=== PATIENT | male | born 1985 ===

== ENCOUNTER 2022-04-01 12:46 | Outpatient (RCR) | payer OTHER, SELFPAY ==
--- NOTE | 2022-04-01 13:49 | PTOPEVAL ---
PHYSICAL THERAPY EVALUATION AND PLAN OF CARE 04-01-22 Thank you for referring Dev Palacios to [facility] He is scheduled to be seen for therapy? 0-2 x/week for 4 weeks. His symptoms have decreased and Eply maneuver was performed with good clearance of L anterior/posterior canalisthesis. Education was provided. He is to call if he needs any further treatment in the next 4 weeks. Please review, sign, date and return this plan of care VINCENT. I agree with and certify that the following plan of care is medically necessary. Referring Physician Date Attending Provider: Sukhwinder Sepulveda MD Past Medical History Source of Past Medical History Patient Neurological History Hx Migraine Yes: 1x/month Cardiovascular History Hx Cardiac Disorders No Significant History Respiratory History Hx Sleep Apnea Yes: to get testing for Gastrointestinal History Hx Gastrointestinal Disorders No Significant History Musculoskeletal History Hx Back Pain Yes: intermittent low back pain Endocrine History Hx Endocrine Disorders No Significant History Evaluation Information Diagnosis vestibular therapy Onset January 30 2022 Pain Assessment Self Report Self Report Pain Level 0 Pain Score Pain Score 0: Self Report Vestibular Evaluation Past Vestibular History Headaches Medical History Comments migraines about 1x/month; reports no issues with vision, med changes, allergies or sinus'; L ear surgery as a child- ear drum; Other Symptoms Comments have not had any dizziness for the past few days; no issues with driving, reading or watching TV; tends to sleep on R side only; Onset of Symptoms woke up in AM, was dizzy; sat up and it eased; anytime tip head back or to the L got dizzy; went to ENT; Recurrence and Prior Episodes of Vertigo this is the first episode of dizziness Previous Medical Care/Testing Hearing Test Previous Medical Care/Testing Comments per hearing test, decrease L ear hearing Hearing Changes Tinnitus Hearing Changes Comments B ear Symptoms Decrease Holding Head in one Position Vestibular Testing Selene-Hallpike Right WNL Vestibular Testing Comments Eply maneuver to L: rep 1- little dizzy, cleared 10 seconds; rep 2- little dizzy, cleared 5 sec; few sec of dizzy with side lying to
--- NOTE | 2022-05-10 11:47 | PCPTNOTE ---
PHYSICAL THERAPY DISCHARGE REPORT 7-25-22 Attending Provider: Sukhwinder Sepulveda MD Patient:Dev Palacios Date of :1985 Dev has not returned for any further treatments since the evaluation on 04/01/2022, therefore he will be discharged at this time. The goals were not addressed. Thank you for referring Dev to [facility]. Please review, sign, date and return this discharge summary VINCENT. I have been updated about the patient's current status and I agree with discharge from the above service at this time. Referring Physician Date
== END 2022-05-11 08:20 | disposition home or self-care (01) ==
LOC: ANHPT 12:46
PROVIDERS: Visit Provider Otolaryngology
DX: H81.12 Benign paroxysmal vertigo, left ear (principal)
CPT/HCPCS: 97161

== ENCOUNTER 2024-01-17 11:19 | Outpatient (CLI) | payer OTHER, SELFPAY ==
--- NOTE | 2024-01-17 | ECG_ITS ---
Measurements Intervals [place] Rate: 80 P: 65 LA: 160 QRS: 74 QRSD: 117 T: 57 QT: 351 QTc: 406 Interpretive Statements SINUS RHYTHM POSSIBLE LEFT ATRIAL ENLARGEMENT [-0.1mV P WAVE IN V1/V2] INCOMPLETE RIGHT BUNDLE BRANCH BLOCK [90+ ms QRS DURATION, TERMINAL R IN V1/V2, 40+ ms S IN I/aVL/V4/V5/V6] NO PREVIOUS ECG AVAILABLE FOR COMPARISON Electronically Signed On 01-17-2024 12:38:09 CDT by Steve Matos M.D.
== END 2024-01-17 11:20 | disposition home or self-care (01) ==
LOC: ANHCARD 11:22
PROVIDERS: Visit Provider Nurse Practitioner Family
DX: I45.10 Unspecified right bundle-branch block (principal); Z82.49 Family history of ischemic heart disease and other diseases of the circulatory system
CPT/HCPCS: 93005

== ENCOUNTER 2024-01-26 09:46 | Outpatient (CLI) | payer OTHER, SELFPAY ==
[2024-01-26 10:42] LABS: Eosinophils Absolute Auto 0.1 K/mm3 (0-0.3); Eosinophils Percent Auto 2.1 % (0-4.4); Hematocrit 46.4 % (42.0-52.0); Hemoglobin 15.9 g/dL (14.0-18.0); Immature Granulocyte Absolute 0.01 K/mm3 (0.00-0.031); Immature Granulocyte Percent A 0.3 % (0-0.5); Lymphocytes Absolute Auto 1.11 K/mm3 (0.9-3.2); Lymphocytes Percent Auto 28.5 % (18.3-44.2); Mean Corpuscular HGB Conc 34.3 g/dl (32-36); Mean Corpuscular Hemoglobin 29.8 pg (26-34); Mean Corpuscular Volume 86.9 fl (80-100); Mean Platelet Volume 10.3 fl (7.4-10.4); Monocytes Absolute Auto 0.4 K/mm3 (0.1-0.6); Monocytes Percent Auto 10.3 % (2.6-8.5); Neutrophils Absolute Auto 2.3 K/mm3 (1.3-6.7); Neutrophils Percent Auto 57.8 % (45.5-73.1); Platelet Count Result 118 k/mm3 (150-375); Red Blood Count 5.34 M/mm3 (4.6-6.20); Red Cell Distribution Width 12.5 % (11.5-14.5); White Blood Count 3.9 K/mm3 (4.5-10.0)
[2024-01-26 11:01] LABS: Alanine Aminotransferase 24 U/L (6-50); Albumin Level 4.6 g/dL (3.5-5.1); Alkaline Phosphatase 64 U/L (38-126); Anion Gap 6 mmol/L (4-12); Aspartate Amino Transferase 29 U/L (17-59); Bilirubin,Total 0.5 mg/dL (0.2-1.3); Blood Urea Nitrogen 11 mg/dL (9-20); Calcium 9.5 mg/dL (8.4-10.2); Carbon Dioxide 30 mmol/L (22-30); Chloride 103 mmol/L (98-107); Cholesterol 165 mg/dL (0-200); Estimated Glomerular Filt Rate > 60; Glucose 64 mg/dL (65-110); HDL Direct 39 mg/dL; Sodium 139 mmol/L (137-145); Triglycerides 132 mg/dL (<150)
[2024-01-26 11:04] LABS: LDL Cholesterol Direct 108 mg/dL
[2024-01-26 11:06] LABS: Appearance Urine Clear (Clear); Bilirubin Urine Negative (Negative); Blood Urine Negative (Negative); Color Urine Yellow (Yellow); Glucose Urine UA Negative (Negative); Ketones Urine Negative (Negative); Leukocyte Esterase Ur Negative LEU/UL (Negative); Nitrate Urine Negative (Negative); Protein Urine Negative (Negative); pH Urine 6.5 (5.0-9.0)
[2024-01-26 11:16] LABS: Add Urine Microscopic? NO
[2024-01-26 11:29] LABS: Free T4 Free Thyroxine 1.04 ng/mL (0.78-2.19); Vitamin D 25 Hydroxy 28.2 ng/mL
[2024-02-02 12:54] LABS: PSA, Free 0.4 ng/mL; PSA, Total 1.1 ng/mL (< OR = 4.0); Percent Free Prostate Spec Ag 36 % (calc) (>25)
[2024-02-03 12:08] LABS: Testosterone Free 74.8 pg/mL (35.0-155.0); Testosterone Total 729 ng/dL (250-1100)
[2024-02-19 06:24] LABS: Estradiol, Ultrasensitive 19
== END 2024-01-26 09:47 | disposition home or self-care (01) ==
LOC: ANHLAB 09:50
PROVIDERS: Visit Provider Nurse Practitioner Family
DX: Z13.29 Encounter for screening for other suspected endocrine disorder (principal); F95.2 Tourette's disorder; R68.82 Decreased libido; R53.83 Other fatigue; Z00.00 Encounter for general adult medical examination without abnormal findings
CPT/HCPCS: 36415; 80053; 80061; 81003; 82306; 82670; 84153; 84154; 84402; 84403; 84439; 84443; 85025; 85055